=== PATIENT | female | born 1990 | race Caucasian/White ===

== ENCOUNTER 2024-02-28 15:23 | Emergency (ER) | payer OTHER ==
[~2024-02-28] VITALS: Ht 165.1 cm; Wt 113.6 kg
[~2024-02-28 15:23] MED LIST: DIAZ2 PO; NOCURR; OXYC-490 PO
[2024-02-28 15:42] VITALS: BP 125/72; PULSE 98; RESP 18; TEMP 98.3; O2SAT 98
[2024-02-28] MEDS ORDERED: ACET-2080 PO (19:58)
[2024-02-28] MEDS ORDERED: IBUP-1554 PO (19:58)
[2024-02-28] MEDS: IBUPROFEN 600 MG TABLET PO ONE (20:02)
[2024-02-28] MEDS: ACETAMINOPHEN/CODEINE 300-30 MG TABLET PO ONE (20:03)
== END 2024-02-28 20:26 | disposition home or self-care (01) ==
LOC: EMS 15:29
DX: S62.633A Displaced fracture of distal phalanx of left middle finger, initial encounter for closed fracture (principal); S62.635A Displaced fracture of distal phalanx of left ring finger, initial encounter for closed fracture; E11.9 Type 2 diabetes mellitus without complications; J45.909 Unspecified asthma, uncomplicated; Z88.0 Allergy status to penicillin; W19.XXXA Unspecified fall, initial encounter; Y93.89 Activity, other specified; Y92.89 Other specified places as the place of occurrence of the external cause; Y99.8 Other external cause status
CPT/HCPCS: 29280; 99283

== ENCOUNTER 2024-09-21 15:52 | Emergency (ER) | payer OTHER ==
[~2024-09-21] VITALS: Ht 177.8 cm; Wt 104.5 kg
[~2024-09-21 15:52] MED LIST changes: +ACET-2080 PO; -DIAZ2 PO; +IBUP-1554 PO; -NOCURR; -OXYC-490 PO
[2024-09-21 15:55] VITALS: TEMP 98.1
[2024-09-21] MEDS: IBUPROFEN 600 MG TABLET PO ONE (16:39)
[2024-09-21 17:33] VITALS: BP 119/62; PULSE 83; RESP 18; O2SAT 99
[2024-09-21] MEDS ORDERED: IBUP-1492 PO (17:44)
== END 2024-09-21 17:57 | disposition home or self-care (01) ==
LOC: EMS 15:52
DX: S62.613A Displaced fracture of proximal phalanx of left middle finger, initial encounter for closed fracture (principal); S62.615A Displaced fracture of proximal phalanx of left ring finger, initial encounter for closed fracture; E11.9 Type 2 diabetes mellitus without complications; J45.909 Unspecified asthma, uncomplicated; F12.90 Cannabis use, unspecified, uncomplicated; Z88.0 Allergy status to penicillin; F17.210 Nicotine dependence, cigarettes, uncomplicated; Y04.0XXA Assault by unarmed brawl or fight, initial encounter; Y93.89 Activity, other specified; Y92.89 Other specified places as the place of occurrence of the external cause; Y99.8 Other external cause status
CPT/HCPCS: 82962; 99283